=== PATIENT | male | born 1980 | race African-American/Black ===

== ENCOUNTER 2017-03-27 20:49 | Emergency (ER) | payer OTHER ==
[~2017-03-27] VITALS: Ht 185.4 cm; Wt 86.3 kg
[~2017-03-27 20:49] MED LIST: CEPH-507 PO; NO HOME MEDICATIONS
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
--- NOTE | 2017-03-27 20:55 | NUR ---
Pt presents ambulatory to ER with c/o high blood pressure with headache. Pt states he checked his BP at [facility] and it was high so he thought he should get it checked out here. BP at [facility] checked about 15 minutes before arrival to ER. Pt states he has high blood pressure before but does not currently take any medications. Pt rates his headache 6-05/16. Pt resting on cart texting on phone, denies other needs.
--- OUTSIDE RECORDS SUMMARY | 2017-03-27 20:58 | XMS REPORT | Continuity of Care Document ---
Author Author [facility] Address Unknown Phone Unavailable Allergies Active Description Code Type Severity Reaction Onset Reported/Identified Relationship to Patient Clinical Status Yes No Known Drug Allergies [id number] Drug Allergy Unknown N/ A 05/20/2012 Medications [...] Status Pt. Type Provider Facility Loc./Unit Complaint [id number] 02/28/2014 09:32:00 2013 11:25:00 DIS Emergency ELVI LOOMIS, MAYRSOL Amador [facility] ED HSB [id number] 03/27/2017 20:54:00 ACT Emergency JONNY LOOMIS, VLADIMIR Busch [facility] ED [id number] 05/20/2012 13:38:00 Document Registration
[2017-03-27] MEDS ORDERED: amLODIPine 5 MG (NORVASC) TAB PO ONE (21:25)
[2017-03-27] MEDS ORDERED: LABETALOL HCL 20 MG/4 ML VIAL IV ONE (21:25)
[2017-03-27 21:44] LABS: BASOPHILS % (AUTO) 0 % (0-2); EOSINOPHILS # (AUTO) 0.2 10^3uL; EOSINOPHILS % (AUTO) 2 % (0-4); LYMPHOCYTES # (AUTO) 2.6 X10^3; MEAN CORPUSCULAR HEMOGLOBIN 31.1 PG (26.0-34.0); MEAN CORPUSCULAR VOLUME 88 FL (80-100); MEAN PLATELET VOLUME 9.6 FL (6.0-9.5); MONOCYTES # (AUTO) 0.6 X10^3; MONOCYTES % (AUTO) 7 % (3-11); NEUTROPHILS # (AUTO) 4.4 X10^3; NEUTROPHILS % (AUTO) 57 % (51-67); PLATELET COUNT 333 10^3uL (150-450); WHITE BLOOD COUNT 7.73 10^3uL (4.0-11.0)
[2017-03-27 21:48] LABS: MEAN CORPUSCULAR HGB CONC 35.6 g/dL (31.0-37.0)
--- NOTE | 2017-03-27 21:52 | NUR ---
Pt resting on cart, reports feeling better already. Unable to give UA specimen at this time.
[2017-03-27 21:55] LABS: ALBUMIN 4.4 g/dL (3.4-5.0); ALKALINE PHOSPHATASE 72 U/L (38-126); ANION GAP 13.7 MEQ/L (3-15); BUN/CREATININE RATIO 8 (10-20); CALCULATED IONIZED CALCIUM 3.9 mg/dL (3.8-4.6); CREATINE KINASE 146 U/L (55-170); TOTAL PROTEIN 8.3 g/dL (6.4-8.5)
[2017-03-27 22:11] LABS: BILIRUBIN,URINE Negative (Negative); CLARITY,URINE Clear; COLOR,URINE Yellow; GLUCOSE, URINE (UA) Negative (Negative); LEUKOCYTE ESTERASE ,URINE Negative (Negative)
[2017-03-27 22:23] LABS: RBC,URINE 0-2 /HPF; URINE CENTRIFUGED VOLUME 12 mL
[2017-03-27] MEDS ORDERED: hydrALAZINE 20 MG/ML (APRESOLINE) 1 ML VIAL IV ONE (22:35)
[2017-03-27] MEDS ORDERED: AML5T PO (23:42)
--- NOTE | 2017-03-27 23:57 | NUR ---
Pt dismissed to home with instructions. Informed pt of prescription sent to [facility]. Pt stated his understanding. Pt left ambulatory to POV. No other needs or concerns presented. IV site discontinued.
[2017-03-28 00:15] VITALS: BP 140/89
== END 2017-03-27 23:57 | disposition home or self-care (01) ==
LOC: ED 20:54
DX: I16.0 Hypertensive urgency (principal)
CPT/HCPCS: 36415; 80053; 81003; 81015; 82550; 82553; 84443; 84484; 85025; 93005; 96374; 96375; 99283; J0360; J3490; 93010; 99284